=== PATIENT | female | born 1960 ===

== ENCOUNTER 2016-10-08 10:21 | Emergency (ER) | payer OTHER ==
[2016-10-08 10:31] VITALS: BP 101/47; PULSE 73; RESP 16; TEMP 98.2; O2SAT 97
--- NOTE | 2016-10-08 10:59 | C.PDOC ---
Time Seen by Provider: 10/08/16 10:34 Chief Complaint (Nursing): Headache Past Medical History Vital Signs: Last Vital Signs Temp 98.2 F 10/08/16 10:26 Pulse 73 10/08/16 10:26 Resp 16 10/08/16 10:26 BP 101/47 L 10/08/16 10:26 Pulse Ox 97 10/08/16 10:26 - Social History Hx Alcohol Use: No Hx Substance Use: No - Immunization History Hx Tetanus Toxoid Vaccination: Yes Hx Influenza Vaccination: No Hx Pneumococcal Vaccination: No ED Course And Treatment O2 Sat by Pulse Oximetry: 97 Disposition - Disposition Forms: [employer] (Italian)
--- NOTE | 2016-10-08 11:03 | C.PDOC ---
History Of Present Illness Alex Astudillo, a 56 year old female, presents to the ED complaining of a headache. The patient reports that one month ago a metal zak fell onto her head and she sustained a head injury. She states that she was evaluated and had a CT of her head performed but results were negative. The patient states that today she has been having intermittent headaches associated with mild dizziness. Denies nausea, vomiting, numbness and tingling in arms and legs, vision. Patient also denies new injury. Time Seen by Provider: 10/08/16 10:34 Chief Complaint (Nursing): Headache History Per: Patient History/Exam Limitations: no limitations Current Symptoms Are (Timing): Still Present Associated Symptoms: denies: Blurred Vision, Nausea, Vomiting, Extremity Weakness Past Medical History Reviewed: Historical Data Vital Signs: Last Vital Signs Temp 98.2 F 10/08/16 10:26 Pulse 73 10/08/16 10:26 Resp 16 10/08/16 11:58 BP 101/47 L 10/08/16 10:26 Pulse Ox 97 10/08/16 11:55 - Medical History PMH: No Chronic Diseases Surgical History: No Surg Hx Family History: States: Unknown Family Hx - Social History Hx Alcohol Use: No Hx Substance Use: No - Immunization History Hx Tetanus Toxoid Vaccination: Yes Hx Influenza Vaccination: No Hx Pneumococcal Vaccination: No Review Of Systems Eyes: Negative for: Vision Change Gastrointestinal: Negative for: Nausea, Vomiting Neurological: Positive for: Headache, Dizziness. Negative for: Weakness, Numbness Physical Exam - Physical Exam Appears: Non-toxic, No Acute Distress Skin: Warm, No Rash Head: No Atraumatic, No Normacephalic (Hematoma to top parietal scalp which is mildly tender and swollen.), Tenderness, Swelling Eye(s): bilateral: Normal Inspection, PERRL, EOMI Ear(s): Bilateral: Normal Oral Mucosa: Moist Neck: Normal ROM, No Midline Cervical Tenderness, No Paracervical Tenderness, Supple Chest: Symmetrical, No Deformity, No Tenderness, No Ecchymosis Cardiovascular: Rhythm Regular, No Friction Rub, No Murmur Respiratory: Normal Breath Sounds, No Rales, No Rhonchi, No Wheezing Neurological/Psych: Oriented x3, Normal Speech, Normal Cognition ED Course And Treatment O2 Sat by Pulse Oximetry: 97 (RA) Pulse Ox Interpretation: Normal Medical Decision Making Medical Decision Makin Initial Impression: 56 year old male presenting with headache and dizziness Initial Plan: * Toradol 30mg IM * Tylenol 650mg PO * Reevaluation On re-exam, the patient reports improvement of symptoms. Lungs are CTA, heart is RRR. Abdomen is soft, non-tender and patient is tolerating PO well. Ambulatory in the ED with steady gait. Follow up with the medical doctor within 1-2 days. Return if worsened. Disposition - Disposition Referrals: [facility] at [facility] [Outside] Disposition: HOME/ ROUTINE Disposition Time: 11:52 Condition: GOOD Additional Instructions: Follow up with the medical doctor within 1-2 days. Return if worsened. Prescriptions: Naproxen [Naprosyn] 500 mg PO BID #20 tab traMADol [Ultram] 50 mg PO Q6 PRN #20 tab PRN Reason: Pain Instructions: Concussion (ED), Head Injury (ED) Forms: [employer] (Sinhala) - Clinical Impression Clinical Impression: Head injury, Headache - Scribe Statement The provider has reviewed the documentation as recorded by the Katieibronny Jolly All medical record entries made by the Katieibronyn were at my direction and personally dictated by me. I have reviewed the chart and agree that the record accurately reflects my personal performance of the history, physical exam, medical decision making, and the department course for this patient. I have also personally directed, reviewed, and agree with the discharge instructions and disposition.
== END 2016-10-08 11:58 | disposition home or self-care (01) ==
LOC: C.ER 10:21
DX: S09.90XD Unspecified injury of head, subsequent encounter (principal); W22.8XXD Striking against or struck by other objects, subsequent encounter; R51 Headache
CPT/HCPCS: 96372; 99284; J1885

== ENCOUNTER 2017-01-24 11:24 | Emergency (ER) | payer OTHER ==
[2017-01-24 11:24] VITALS: BMI 29.8
[2017-01-24 11:45] VITALS: RESP 16
[2017-01-24] MEDS ORDERED: Naproxen 550 mg Tab PO STA (12:39)
--- NOTE | 2017-01-24 12:42 | C.PDOC ---
History Of Present Illness 56yo female, presents to ED with complaints of breast, more on her right breast , for the past 4 days. Patient denies any trauma, injury, skin changes, nipple discharge, nipple inversion, shortness of breath, trouble breathing or chest pain. Of note, patient states she had a mammogram done in [facility]2015, which was normal. Also reports she has a scheduled visit at the clinic on Jan 30, states she is here today because she wants something for the pain. She offers no other medical complaints. Time Seen by Provider: 01/24/17 12:25 Chief Complaint (Nursing): Breast Problem History Per: Patient History/Exam Limitations: no limitations Onset/Duration Of Symptoms: Days Current Symptoms Are (Timing): Still Present Past Medical History Vital Signs: Last Vital Signs Temp 98.8 F 01/24/17 12:54 Pulse 60 01/24/17 12:54 Resp 16 01/24/17 12:54 BP 149/80 01/24/17 12:54 Pulse Ox 71 L 01/24/17 14:24 - Medical History PMH: No Chronic Diseases Surgical History: No Surg Hx Family History: States: No Known Family Hx - Social History Hx Alcohol Use: No Hx Substance Use: No - Immunization History Hx Tetanus Toxoid Vaccination: Yes Hx Influenza Vaccination: Yes Hx Pneumococcal Vaccination: No Review Of Systems Cardiovascular: Negative for: Chest Pain Respiratory: Negative for: Shortness of Breath Musculoskeletal: Positive for: Other (breast pain, worse on right. denies any skin changes, nipple discharge, nipple inversion) Physical Exam - Physical Exam Appears: Other (mild painful distress) Skin: Normal Color, No Rash, Other (no skin changes noted to breasts) Lymphatic: No Axilla Node Tenderness Chest: Other (tenderness to palpation of right lateral breast; on visual exam both breasts symmetrical. no nipple discharge or inversion noted.) Cardiovascular: Rhythm Regular Respiratory: Normal Breath Sounds Neurological/Psych: Oriented x3 ED Course And Treatment O2 Sat by Pulse Oximetry: 71 Medical Decision Making Medical Decision Making: Impression: Breast pain Plan: -- Tylenol 975 mg PO Informed patient to follow up with clinic for prescription for a repeat mammogram as an outpatient. Patient stable for discharge home. Disposition Counseled Patient/Family Regarding: Need For Followup, Rx Given - Disposition Referrals: [facility] [Outside] Disposition: HOME/ ROUTINE Disposition Time: 12:40 Condition: STABLE Additional Instructions: Follow up with the clinic in 2 days without fail for further evaluation. Take medication as prescribed. Return to the ER at any time for any new or worsening symptoms. Prescriptions: Meloxicam [Mobic] 15 mg PO DAILY #20 tab Instructions: Breast Self Exam for Women (ED) Forms: [employer] (Armenian), Work Excuse Print Language: ESTONIAN - Clinical Impression Clinical Impression: Pain of breast - PA / LANGUAGE TRANSLATOR / Resident Statement MD/DO has reviewed & agrees with the documentation as recorded. - Scribe Statement The provider has reviewed the documentation as recorded by the Corine Felipe Provider Attestation: All medical record entries made by the Katieibe were at my direction and personally dictated by me. I have reviewed the chart and agree that the record accurately reflects my personal performance of the history, physical exam, medical decision making, and the department course for this patient. I have also personally directed, reviewed, and agree with the discharge instructions and disposition.
[2017-01-24] MEDS ORDERED: Naproxen 550 mg Tab PO ONE (12:48)
[2017-01-24 12:55] VITALS: BP 149/80; PULSE 60; TEMP 98.8
[2017-01-24 14:05] VITALS: O2SAT 71
== END 2017-01-24 13:02 | disposition home or self-care (01) ==
LOC: C.ER 11:24
DX: N64.4 Mastodynia (principal)

== ENCOUNTER 2017-05-12 14:29 | Emergency (ER) | payer OTHER ==
[2017-05-12 14:40] VITALS: BMI 29.5
[2017-05-12] MEDS ORDERED: Sodium Chloride 0.9% 1,000 ML IV ONE (15:16)
--- NOTE | 2017-05-12 15:16 | C.PDOC ---
History Of Present Illness 56 year old female with PSHx of a presents to the ED c/o left flank pain, LLQ pain associated with nausea and vomit for the past 5 days. Patient reports that for the past 2 days her pain has worsened. Patient denies nausea, vomit, diarrhea, weakness, numbness. L FLANK, LLQ PAIN SINCE +NV PSH CSECT EXAM MOD DIST NONTOXIC ABD +LLQ TEND SOFT +L CVAT REMAINDER NEG Time Seen by Provider: 05/12/17 14:50 Chief Complaint (Nursing): Abdominal Pain History Per: Patient History/Exam Limitations: no limitations Onset/Duration Of Symptoms: Days Current Symptoms Are (Timing): Still Present Severity: Mild Location Of Pain/Discomfort: LLQ Radiation Of Pain To:: Back Quality Of Discomfort: "Pain" Associated Symptoms: denies: Nausea, Vomiting, Diarrhea Exacerbating Factors: None Recent travel outside of the [place]: No Additional History Per: Patient Abnormal Vaginal Bleeding: No Past Medical History Reviewed: Historical Data, Nursing Documentation, Vital Signs Vital Signs: Last Vital Signs Temp 97.8 F 05/12/17 14:40 Pulse 90 05/12/17 14:40 Resp 18 05/12/17 14:40 BP 112/76 05/12/17 14:40 Pulse Ox 99 05/12/17 18:13 - Medical History PMH: No Chronic Diseases Surgical History: Family History: States: Unknown Family Hx - Social History Hx Alcohol Use: No Hx Substance Use: No - Immunization History Hx Tetanus Toxoid Vaccination: Yes Hx Influenza Vaccination: Yes (2017) Hx Pneumococcal Vaccination: No Review Of Systems Constitutional: Negative for: Fever, Chills Cardiovascular: Negative for: Chest Pain Respiratory: Negative for: Cough, Shortness of Breath Gastrointestinal: Positive for: Abdominal Pain. Negative for: Nausea, Vomiting , Diarrhea Musculoskeletal: Positive for: Back Pain Skin: Negative for: Rash Neurological: Negative for: Weakness, Numbness Physical Exam - Physical Exam Appears: Non-toxic, No Acute Distress Skin: Normal Color, Warm, Dry Head: Atraumatic, Normacephalic Eye(s): bilateral: Normal Inspection Nose: No Discharge Oral Mucosa: Moist Neck: Normal ROM, Supple Chest: Symmetrical Cardiovascular: Rhythm Regular, No Murmur Respiratory: Normal Breath Sounds, No Rales, No Rhonchi, No Wheezing Gastrointestinal/Abdominal: Soft, Tenderness (LLQ), No Guarding, No Rebound Back: Other (Left flakn tenderness) Extremity: Normal ROM, No Tenderness, No Swelling Neurological/Psych: Oriented x3 Gait: Steady ED Course And Treatment - Laboratory Results Result Diagrams: 05/12/17 15:46 05/12/17 15:46 O2 Sat by Pulse Oximetry: 99 (On RA) Pulse Ox Interpretation: Normal - CT Scan/US CT abd/pelvis Other Rad Studies (CT/US): Read By Radiologist, Radiology Report Reviewed CT/US Interpretation: PROCEDURE: CT Abdomen and Pelvis with contrast. HISTORY : LLQ PAIN RO RENAL COLIC VS DIVERTICULITIS. COMPARISON: None. TECHNIQUE: Contrast dose: 100 mL Visipaque 320. Radiation dose: Total exam DLP = 751.40 mGy-cm. This CT exam was performed using one or more of the following dose reduction techniques: Automated exposure control, adjustment of the mA and/or kV according to patient size, and/or use of iterative reconstruction technique. FINDINGS: LOWER THORAX: Unremarkable. LIVER: Normal size, contour and attenuation. Multiple rounded nonspecific low-attenuation masses, largest 14 mm. Possible cysts. No biliary dilatation. Smooth contour. GALLBLADDER AND BILE DUCTS: Unremarkable. PANCREAS: Unremarkable. No gross lesion or ductal dilatation. SPLEEN: Unremarkable. ADRENALS: Unremarkable. No mass. KIDNEYS AND URETERS: Nonobstructing 2 mm right lower pole renal calculus. No left renal calculus. No renal mass or hydronephrosis. VASCULATURE: Unremarkable. No aortic aneurysm. BOWEL: Acute diverticulitis of distal descending/ sigmoid colonic junction. No abscess. No bowel obstruction. Scattered colonic diverticulosis elsewhere. APPENDIX: Not identified. No secondary findings. PERITONEUM: Unremarkable. No free fluid. No free air. LYMPH NODES: Unremarkable. No enlarged lymph nodes. BLADDER: Unremarkable. REPRODUCTIVE: Status post hysterectomy. BONES: No acute fracture. OTHER FINDINGS: None. IMPRESSION: Acute diverticulitis at the junction of the distal descending and sigmoid colon. No evidence of abscess or free air. Scattered colonic diverticulosis. Additional minor findings as above. Medical Decision Making Medical Decision Making: Impression: left flank, LLQ pain Plan: * CT abd/pelvis * Labs * Flomax 0.4 mg PO * IV fluids * Lidocaine IV * Reglan 10 mg IV * Tylenol 975 mg PO * Zofran 4 mg IVP * UA Disposition Counseled Patient/Family Regarding: Studies Performed, Diagnosis, Need For Followup, Rx Given - Disposition Referrals: YOUR,PMD [Other] Disposition: HOME/ ROUTINE Disposition Time: 18:14 Condition: IMPROVED Prescriptions: Acetaminophen with Codeine [Tylenol with Codeine No. 3 300 mg-30 mg] 1 tab PO Q6 PRN #12 tab PRN Reason: Pain, Moderate (4-7) Ciprofloxacin [Cipro] 1 tab PO BID #14 tab Metoclopramide [Reglan] 1 tab PO TID PRN #25 tab PRN Reason: Nausea/Vomiting Metronidazole [Flagyl] 500 mg PO BID #14 tab Instructions: Diverticulitis Forms: [employer] (Slovak) Print Language: GUAMANIAN - Clinical Impression Clinical Impression: Diverticulitis - Scribe Statement The provider has reviewed the documentation as recorded by the Scribronny Serrano All medical record entries made by the Scribe were at my direction and personally dictated by me. I have reviewed the chart and agree that the record accurately reflects my personal performance of the history, physical exam, medical decision making, and the department course for this patient. I have also personally directed, reviewed, and agree with the discharge instructions and disposition.
[2017-05-12] MEDS ORDERED: LIDOCAINE IV STA (15:17)
[2017-05-12] MEDS ORDERED: SODIUM CHLORIDE 0.9% IV STA (15:17)
[2017-05-12] MEDS ORDERED: Sodium Chloride 0.9% 1,000 ML ONE (15:34)
[2017-05-12 15:43] LABS: SQUAMOUS EPITHIAL 2 /hpf (0-5); URINE BILIRUBIN NEGATIVE (NEGATIVE); URINE BLOOD NEGATIVE (NEGATIVE); URINE CLARITY Hazy (Clear); URINE COLOR Yellow (YELLOW); URINE GLUCOSE (UA) NORMAL (Normal); URINE LEUKOCYTE ESTERASE TRACE Leu/uL (Negative); URINE PROTEIN NEGATIVE (NEGATIVE)
[2017-05-12] MEDS ORDERED: Iohexol 240 (50 ml) ONE (15:49)
[2017-05-12 15:51] LABS: BASO # 0.1 K/uL (0.0-0.2); BASO % 0.7 % (0.0-2.0); EOS # 0.8 K/uL (0.0-0.7); EOS % 9.4 % (0.0-4.0); HEMOGLOBIN 11.6 g/dL (11.0-16.0); LYMPH # 2.5 K/uL (1.0-4.3); LYMPH % 30.5 % (20.0-40.0); MEAN CELL VOLUME 86.3 fL (81.0-99.0); MEAN CORPUSCULAR HEMOGLOBIN 28.4 pg (27.0-31.0); MEAN CORPUSCULAR HGB CONC 32.9 g/dL (33.0-37.0); MEAN PLATELET VOLUME 9.3 fL (7.2-11.7); MONO # 0.8 K/uL (0.0-0.8); MONO % 9.7 % (0.0-10.0); NEUT # 4.1 K/uL (1.8-7.0); NEUT % 49.7 % (50.0-75.0); RBC 4.1 Mil/uL (3.80-5.20); WHITE BLOOD COUNT 8.2 K/uL (4.8-10.8)
[2017-05-12 16:13] LABS: BLOOD UREA NITROGEN 15 mg/dL (7-17); CALCIUM 8.5 mg/dl (8.6-10.4); GFR AFRICAN-AMERICAN > 60; GFR NON-AFRICAN AMERICAN > 60
[2017-05-12] MEDS ORDERED: Iodixanol 320 MG/ML 100 ML BOTTLE IV ONE (17:00)
--- NOTE | 2017-05-12 18:05 | CT ---
PROCEDURE: CT Abdomen and Pelvis with contrast HISTORY: LLQ PAIN RO RENAL COLIC VS DIVERTICULITIS COMPARISON: None. TECHNIQUE: Contrast dose: 100 mL Visipaque 320 Radiation dose: Total exam DLP = 751.40 mGy-cm. This CT exam was performed using one or more of the following dose reduction techniques: Automated exposure control, adjustment of the mA and/or kV according to patient size, and/or use of iterative reconstruction technique. FINDINGS: LOWER THORAX: Unremarkable. LIVER: Normal size, contour and attenuation. Multiple rounded nonspecific low-attenuation masses, largest 14 mm. Possible cysts. No biliary dilatation. Smooth contour. GALLBLADDER AND BILE DUCTS: Unremarkable. PANCREAS: Unremarkable. No gross lesion or ductal dilatation. SPLEEN: Unremarkable. ADRENALS: Unremarkable. No mass. KIDNEYS AND URETERS: Nonobstructing 2 mm right lower pole renal calculus. No left renal calculus. No renal mass or hydronephrosis. VASCULATURE: Unremarkable. No aortic aneurysm. BOWEL: Acute diverticulitis of distal descending/ sigmoid colonic junction. No abscess. No bowel obstruction. Scattered colonic diverticulosis elsewhere. APPENDIX: Not identified. No secondary findings. PERITONEUM: Unremarkable. No free fluid. No free air. LYMPH NODES: Unremarkable. No enlarged lymph nodes. BLADDER: Unremarkable. REPRODUCTIVE: Status post hysterectomy BONES: No acute fracture. OTHER FINDINGS: None. IMPRESSION: Acute diverticulitis at the junction of the distal descending and sigmoid colon. No evidence of abscess or free air. Scattered colonic diverticulosis. Additional minor findings as above.
[2017-05-12] MEDS ORDERED: Ciprofloxacin 400mg/200ml D5W 400 MG/200 ML BAG IV STA (18:06)
[2017-05-12] MEDS ORDERED: metroNIDAZOLE IV 500 mg/100 ml 500 MG/100 ML BAG IV SCH (18:15)
[2017-05-12] MEDS ORDERED: metroNIDAZOLE IV 500 mg/100 ml 500 MG/100 ML BAG IVPB STA (18:21)
[2017-05-12] MEDS ORDERED: Ciprofloxacin 400mg/200ml D5W 400 MG/200 ML BAG IVPB ONE (18:26)
[2017-05-12] MEDS ORDERED: metroNIDAZOLE IV 500 mg/100 ml 500 MG/100 ML BAG ONE (20:38)
[2017-05-12 20:52] VITALS: BP 98/63; PULSE 71; RESP 20; TEMP 97.6; O2SAT 100
== END 2017-05-12 21:23 | disposition home or self-care (01) ==
LOC: C.ER 14:29
DX: K57.32 Diverticulitis of large intestine without perforation or abscess without bleeding (principal)
CPT/HCPCS: 74177; 80048; 81001; 85025; 96361; 96365; 96375; 99284; J0744; J2001; J2765; J7040; Q9967

== ENCOUNTER 2017-10-05 17:36 | Emergency (ER) | payer OTHER ==
[2017-10-05 17:37] VITALS: BMI 29.5
[2017-10-05 17:45] VITALS: BP 132/83; PULSE 74; RESP 19; TEMP 97.6; O2SAT 100
--- NOTE | 2017-10-05 18:17 | C.PDOC ---
History Of Present Illness 57 y/o female presents to the ED c/o left shoulder pain due to fall she experienced 3 weeks ago. According to the patient, she fell at work. She admits to going to the ER s/p fall and receiving an X-Ray that read negative. The patient is a poor historian who cannot recall her occupation or the fall that lead to the injury. Time Seen by Provider: 10/05/17 17:53 Chief Complaint (Nursing): Upper Extremity Problem/Injury History Per: Patient (poor historian) History/Exam Limitations: no limitations Onset/Duration Of Symptoms: Days Current Symptoms Are (Timing): Still Present Quality: "Pain" Recent travel outside of the [place]: No Past Medical History Reviewed: Historical Data, Nursing Documentation, Vital Signs Vital Signs: Last Vital Signs Temp 97.6 F 10/05/17 17:49 Pulse 74 10/05/17 17:49 Resp 19 10/05/17 17:49 BP 132/83 10/05/17 17:49 Pulse Ox 100 10/05/17 19:04 Surgical History: Family History: States: Unknown Family Hx - Social History Hx Alcohol Use: No Hx Substance Use: No - Immunization History Hx Tetanus Toxoid Vaccination: Yes Hx Influenza Vaccination: Yes (2017) Hx Pneumococcal Vaccination: No Review Of Systems Constitutional: Negative for: Fever Cardiovascular: Negative for: Chest Pain Musculoskeletal: Positive for: Shoulder Pain (left shoulder pain). Negative for : Neck Pain Skin: Negative for: Rash, Lesions, Bruising Neurological: Negative for: Weakness, Numbness, Other (tingling) Physical Exam - Physical Exam Appears: No Acute Distress Skin: No Rash Head: Atraumatic, Normacephalic Eye(s): bilateral: PERRL, EOMI Oral Mucosa: Moist Neck: Supple Chest: Symmetrical Extremity: No Normal ROM (dec rom shoulder 2/2 pain), Tenderness (anterior shoulder) Extremity: Left: Limited ROM To Joint (limited ROM to left shoulder) Pulses: Left Radial: Normal, Right Radial: Normal Neurological/Psych: Oriented x3, Normal Speech, Normal Cognition ED Course And Treatment O2 Sat by Pulse Oximetry: 100 (RA) Pulse Ox Interpretation: Normal Medical Decision Making Medical Decision Making: Patient is requesting CT scan of shoulder from ED. pt has not followed up with pmd or orthopedist since injury 3 weeks ago. Explained to patient, no need for cdt in ER, needs to f/u outpatient. In ED, patient is refusing X-Ray of shoulder and refuses Tylenol. 19:03 - Pt notified the nurse that she wanted to go for X-Ray. X-Ray was reviewed and found negative. Patient was informed Disposition Counseled Patient/Family Regarding: Diagnosis, Need For Followup - Disposition Referrals: [facility] at [facility] [Outside] Disposition: HOME/ ROUTINE Disposition Time: 18:36 Condition: GOOD Additional Instructions: Take Tylenol or Motrin for pain. Cold compresses to left shoulder several times per day. Apply for Gabrielle care and follow up in medical clinic and recommend referral to orthopedics. [place] Tylenol o Motrin para el dolor. Compresas fras al hombro leonid varias veces por da. Solicite cuidado de dhiraj y seguimiento en chito clnica mdica y recomiende chito derivacin a ortopedia. Forms: Gen Discharge Inst Ukrainian, Banyan (Ukrainian) Print Language: MALDIVIAN - Clinical Impression Clinical Impression: Left shoulder pain - PA / AUDIO VISUAL COLLECTIONS COORDINATOR / Resident Statement MD/DO has reviewed & agrees with the documentation as recorded. - Scribe Statement The provider has reviewed the documentation as recorded by the Scribe (Aby Hernandez) All medical record entries made by the Scribe were at my direction and personally dictated by me. I have reviewed the chart and agree that the record accurately reflects my personal performance of the history, physical exam, medical decision making, and the department course for this patient. I have also personally directed, reviewed, and agree with the discharge instructions and disposition.
--- NOTE | 2017-10-06 09:06 | RAD ---
Date of service: 10/05/2017 PROCEDURE: Radiographs of the Left Shoulder HISTORY: s/p fall, dec rom COMPARISON: No prior. FINDINGS: BONES: Bone alignment and mineralization are normal. There is no acute displaced fracture or bone destruction. JOINTS: Normal. Glenohumeral and acromioclavicular joints preserved. No osteoarthritis. SOFT TISSUES: Normal. OTHER FINDINGS: None. IMPRESSION: No acute fracture or dislocation.
== END 2017-10-05 19:03 | disposition home or self-care (01) ==
LOC: C.ER 17:36
DX: M25.512 Pain in left shoulder (principal)

== ENCOUNTER 2017-12-01 10:41 | Observation (INO) | payer OTHER ==
[2017-12-01 10:41] VITALS: BMI 29.5
[2017-12-01 12:47] LABS: BASO # 0.1 K/uL (0.0-0.2); BASO % 1.1 % (0.0-2.0); EOS # 0.8 K/uL (0.0-0.7); EOS % 14.8 % (0.0-4.0); HEMOGLOBIN 13.1 g/dL (11.0-16.0); LYMPH # 2.2 K/uL (1.0-4.3); LYMPH % 40.8 % (20.0-40.0); MEAN CELL VOLUME 86.7 fL (81.0-99.0); MEAN CORPUSCULAR HEMOGLOBIN 28.5 pg (27.0-31.0); MEAN CORPUSCULAR HGB CONC 32.9 g/dL (33.0-37.0); MEAN PLATELET VOLUME 9.6 fL (7.2-11.7); MONO # 0.7 K/uL (0.0-0.8); MONO % 12.1 % (0.0-10.0); NEUT # 1.7 K/uL (1.8-7.0); NEUT % 31.2 % (50.0-75.0); NRBC % 0.1 % (0.0-2.0); RBC 4.6 Mil/uL (3.80-5.20); RED CELL DISTRIBUTION WIDTH 13.4 % (11.5-14.5); WHITE BLOOD COUNT 5.5 K/uL (4.8-10.8)
[2017-12-01 13:00] LABS: ALB/GLOB RATIO 1.1 (1.0-2.1); ALBUMIN 4.6 g/dL (3.5-5.0); ALT/SGPT 18 U/L (9-52); AST/SGOT 33 U/L (14-36); BLOOD UREA NITROGEN 14 mg/dL (7-17); CALCIUM 9.8 mg/dl (8.6-10.4); GFR NON-AFRICAN AMERICAN > 60
[2017-12-01 13:10] LABS: B-TYPE NATRIURETIC PEPTIDE 42.2 pg/mL (0-900)
--- NOTE | 2017-12-01 13:27 | C.PDOC ---
History Of Present Illness 57 year old female presents to the ED for evaluation of left-sided chest pain and occasional shortness of breath for the past week. Patient also reports that the pain radiates to her left arm. Patient states her symptoms worsen at night. She was evaluated by Dr. Mcintyre two weeks ago and was told her blood pressure was high. She did not have chest pain at the time, and was discharged with prescription for hydrochlorothiazide. Patient states symptoms are sometimes worse with walking. Patient has never underwent stress test. She denies nausea, vomiting. Time Seen by Provider: 12/01/17 12:07 Chief Complaint (Nursing): Chest Pain History Per: Patient History/Exam Limitations: no limitations Onset/Duration Of Symptoms: Days Current Symptoms Are (Timing): Still Present Quality: "Pain" Associated Symptoms: denies: Nausea Exacerbating Factors: Other (walking ) Additional History Per: Patient Past Medical History Reviewed: Historical Data, Nursing Documentation, Vital Signs Vital Signs: Last Vital Signs Temp 97.7 F 12/01/17 10:47 Pulse 69 12/01/17 10:47 Resp 17 12/01/17 10:47 BP 122/80 12/01/17 10:47 Pulse Ox 100 12/01/17 10:47 - Medical History PMH: No Chronic Diseases Surgical History: Family History: States: Unknown Family Hx - Social History Hx Alcohol Use: No Hx Substance Use: No - Immunization History Hx Tetanus Toxoid Vaccination: Yes Hx Influenza Vaccination: Yes (2018) Hx Pneumococcal Vaccination: Yes Review Of Systems Cardiovascular: Positive for: Chest Pain (left-sided ) Respiratory: Positive for: Shortness of Breath Gastrointestinal: Negative for: Nausea, Vomiting Physical Exam - Physical Exam Appears: Non-toxic, No Acute Distress Skin: Normal Color, Warm, Dry Head: Atraumatic, Normacephalic Eye(s): bilateral: Normal Inspection Oral Mucosa: Moist Neck: Supple Chest: Symmetrical, No Deformity, No Tenderness Cardiovascular: Rhythm Regular, No Murmur Respiratory: Normal Breath Sounds, No Rales, No Rhonchi, No Wheezing Extremity: Normal ROM, Capillary Refill (less than 2 seconds ) Neurological/Psych: Oriented x3, Normal Speech, Normal Cognition ED Course And Treatment - Laboratory Results Result Diagrams: 12/01/17 12:30 12/01/17 12:30 ECG: Interpreted By Me, Viewed By Me ECG Rhythm: Sinus Rhythm Interpretation Of ECG: Normal sinus Rhythm at rate 80bpm. Normal intervals, normal axis. T wave flattening in lead aVL. Rate From EC O2 Sat by Pulse Oximetry: 100 (on RA) Pulse Ox Interpretation: Normal Medical Decision Making Medical Decision Making: Assessment: chest pain Plan: * bloodwork * CXR * EKG * Plavix PO * reassess and disposition Progress: Bloodwork, CXR, EKG ordered and reviewed. Plavix PO given. Disposition Discussed With Dr.: Chikis Coleman Doctor Will See Patient In The: Hospital Counseled Patient/Family Regarding: Studies Performed, Diagnosis - Disposition Disposition: HOSPITALIZED Disposition Time: 13:27 Condition: FAIR Forms: [employer] Connect (Maltese) - Clinical Impression Clinical Impression: Chest pain - Scribe Statement The provider has reviewed the documentation as recorded by the Scribe (Flores Watson) Provider Attestation: All medical record entries made by the Scribe were at my direction and personally dictated by me. I have reviewed the chart and agree that the record accurately reflects my personal performance of the history, physical exam, [facility] decision making, and the department course for this patient. I have also personally directed, reviewed, and agree with the discharge instructions and disposition.
--- NOTE | 2017-12-01 13:39 | RAD ---
Date of service: 12/01/2017 PROCEDURE: CHEST RADIOGRAPH, 1 VIEW HISTORY: chest pain COMPARISON: None available. FINDINGS: LUNGS: Clear. PLEURA: No pneumothorax or pleural fluid seen. CARDIOVASCULAR: Normal. OSSEOUS STRUCTURES: Mild multilevel degenerative spondylosis of the thoracic spine. VISUALIZED UPPER ABDOMEN: Normal. OTHER FINDINGS: None. IMPRESSION: No active disease.
--- NOTE | 2017-12-01 16:03 | CP.PCM.HP ---
<Aby Meier P - Last Filed: 12/01/17 19:54> History of Present Illness - History of Present Illness History of Present Illness: H&P note for hospitalist. Patient is a 57 year old female with past medical history of HTN who presented to ED with complaints of intermittent chest pain and palpitations for the past month. Episodes were initially mild and lasted a few seconds in duration, but this past week become more severe and would last for approximately one hour. Pain is 8-9/10, described as throbbing, and worsens at night. The pain radiates to her left arm and is occasionally associated with dizziness and shortness of breath. States she has been under increased stress at home brought on by her son's drug use. Patient denies any recent illness, fever, chills, N/V, diaphoresis, or headache. Patient has never had a stress test or an echo. PMH: HTN (diagnosed 2 weeks ago), diverticulitis 04/2017 PSHx: , tubal ligation Meds: HCTZ 12.5mg daily, Asa 81mg daily Allergies: NKDA Family Hx: sister with a "weak heart", another sister with hx of cardiac surgery Social: former smoker-quit 25 years ago, 5 cigarettes per day. denies drugs and alcohol use. Present on Admission - Present on Admission Any Indicators Present on Admission: No Review of Systems - Constitutional Constitutional: Chills. absent: Fever, Headache, Lethargy, Night Sweats - EENT Eyes: absent: Decreased Night Vision, Diplopia, Loss of Peripheral Vision Nose/Mouth/Throat: absent: Bleeding Gums, Change in Voice - Cardiovascular Cardiovascular: Chest Pain, Palpitations. absent: Diaphoresis, Dyspnea on Exertion, Edema, Leg Edema, Lightheadedness, Orthopnea, Paroxysmal Nocturnal Dyspnea, Pedal Edema - Respiratory Respiratory: Dyspnea. absent: Cough, Hemoptysis, Dyspnea on Exertion, Wheezing, Snoring, Stridor, Pain on Inspiration - Gastrointestinal Gastrointestinal: absent: Belching, Change in Bowel Habits, Constipation, Dyspepsia, Dysphagia, Excessive Flatus, Heartburn, Loose Stools, Temesmus - Musculoskeletal Musculoskeletal: absent: Abnormal Gait, Back Pain, Muscle Weakness, Myalgias, Neck Pain - Neurological Neurological: Dizziness. absent: Abnormal Gait, Abnormal Hearing, Burning Sensations, Disequilibrium, Loss of Vision, Paresthesias, Radicular Pain, Restless Legs - Psychiatric Psychiatric: Anxiety Past Patient History - Past Social History Smoking Status: Former Smoker - NEUROLOGICAL Hx Neurological Disorder: Yes - PSYCHIATRIC Hx Substance Use: No - SURGICAL HISTORY Hx Surgeries: Yes Hx Section: Yes Hx Hysterectomy: Yes - ANESTHESIA Hx Anesthesia: Yes Hx Anesthesia Reactions: No Meds Allergies/Adverse Reactions: Allergies Allergy/AdvReac Type Severity Reaction Status Date / Time No Known Allergies Allergy Verified 12/01/17 19:37 Physical Exam - Constitutional Appears: Non-toxic, No Acute Distress - Head Exam Head Exam: ATRAUMATIC, NORMOCEPHALIC - Eye Exam Eye Exam: EOMI, PERRL - ENT Exam ENT Exam: Mucous Membranes Moist - Neck Exam Neck exam: Positive for: Full Rom, Normal Inspection - Respiratory Exam Respiratory Exam: Clear to Auscultation Bilateral. absent: Decreased Breath Sounds, Rales, Rhonchi, Wheezes, Respiratory Distress - Cardiovascular Exam Cardiovascular Exam: REGULAR RHYTHM, +S1, +S2 - GI/Abdominal Exam GI & Abdominal Exam: Normal Bowel Sounds, Soft, Tenderness (Mild LLQ tenderness) - Extremities Exam Extremities exam: Positive for: full ROM, normal inspection, pedal pulses present. Negative for: calf tenderness, joint swelling, pedal edema, tenderness - Neurological Exam Neurological exam: Alert, CN II-XII Intact, Oriented x3 - Psychiatric Exam Psychiatric exam: Normal Affect, Normal Mood - Skin Skin Exam: Dry, Intact, Normal Color, Warm Results - Vital Signs Recent Vital Signs: Last Vital Signs Temp 97.2 F L 12/01/17 14:45 Pulse 72 12/01/17 14:52 Resp 18 12/01/17 14:45 BP 126/81 12/01/17 14:45 Pulse Ox 98 12/01/17 14:45 - Labs Result Diagrams: 12/01/17 12:30 12/01/17 12:30 Labs: Laboratory Results - last 24 hr 12/01/17 12/01/17 12:30 12:30 WBC 5.5 RBC 4.60 Hgb 13.1 Hct 39.9 MCV 86.7 MCH 28.5 MCHC 32.9 L RDW 13.4 Plt Count 270 MPV 9.6 Neut % (Auto) 31.2 L Lymph % (Auto) 40.8 H [place] % (Auto) 12.1 H Eos % (Auto) 14.8 H Baso % (Auto) 1.1 Neut # (Auto) 1.7 L Lymph # (Auto) 2.2 [place] # (Auto) 0.7 Eos # (Auto) 0.8 H Baso # (Auto) 0.1 Sodium 141 Potassium 3.9 Chloride 99 Carbon Dioxide 31 H Anion Gap 15 BUN 14 Creatinine 0.7 Est GFR ( Amer) > 60 Est GFR (Non-Af Amer) > 60 Random Glucose 86 Calcium 9.8 Total Bilirubin 0.6 AST 33 ALT 18 Alkaline Phosphatase 80 Troponin I < 0.0120 NT-Pro-B Natriuret Pep 42.2 Total Protein 8.7 H Albumin 4.6 Globulin 4.1 H Albumin/Globulin Ratio 1.1 Assessment & Plan - Assessment and Plan (Free Text) Plan: 57 year old female with PMHx of HTN presents to ED complaining of chest pain and palpitations. Chest pain rule out ACS -EKG on admission: NSR, consider age indeterminate anterior infarct -Troponin negative x2, f/u 3rd -Echo: f/u -TSH, free T4 -Lipid panel -Hgb A1c -ASA 81mg daily -Crestor 10mg PO HS -Cardio consult, Dr. Li covering for Dr. Acosta. Help appreciated. Hx of hypertension Continue home med HCTZ 12.5mg daily Anxiety Psych consulted. Help appreciated PPx SCDs Patient ambulatory, chemical anticoagulation not indicated Pepcid 20mg BID <Chikis Coleman V - Last Filed: 12/01/17 21:45> Results - Vital Signs Recent Vital Signs: Last Vital Signs Temp 97.4 F L 12/01/17 16:00 Pulse 78 12/01/17 16:00 Resp 20 12/01/17 16:00 BP 124/80 12/01/17 16:00 Pulse Ox 99 12/01/17 19:20 - Labs Result Diagrams: 12/01/17 12:30 12/01/17 12:30 Labs: Laboratory Results - last 24 hr 12/01/17 12/01/17 12/01/17 12:30 12:30 16:56 WBC 5.5 RBC 4.60 Hgb 13.1 Hct 39.9 MCV 86.7 MCH 28.5 MCHC 32.9 L RDW 13.4 Plt Count 270 MPV 9.6 Neut % (Auto) 31.2 L Lymph % (Auto) 40.8 H [place] % (Auto) 12.1 H Eos % (Auto) 14.8 H Baso % (Auto) 1.1 Neut # (Auto) 1.7 L Lymph # (Auto) 2.2 [place] # (Auto) 0.7 Eos # (Auto) 0.8 H Baso # (Auto) 0.1 Sodium 141 Potassium 3.9 Chloride 99 Carbon Dioxide 31 H Anion Gap 15 BUN 14 Creatinine 0.7 Est GFR ( Amer) > 60 Est GFR (Non-Af Amer) > 60 Random Glucose 86 Calcium 9.8 Total Bilirubin 0.6 AST 33 ALT 18 Alkaline Phosphatase 80 Total Creatine Kinase 64 CK-MB (Mass) 0.45 Troponin I < 0.0120 < 0.0120 NT-Pro-B Natriuret Pep 42.2 Total Protein 8.7 H Albumin 4.6 Globulin 4.1 H Albumin/Globulin Ratio 1.1 Attending/Attestation - Attestation I have personally seen and examined this patient.: Yes I have fully participated in the care of the patient.: Yes I have reviewed all pertinent clinical information: Yes Notes (Text): this is a 57 year old woman with no prior cardiac workup; cardiac risk factors for hypertension, former smoker for 10 years stopped smoking 5 years ago, both sisters with heart conditions, one requiring surgery and the other noted for suspected heart failure, who reports worsening chest pain. Patient reports she has been having chest pain for the past month, last for seconds, and then resolving; and then for the past week at night, she has been having chest pain at night, lasting for hour. Patient reports chest pain this morning at rest, but resolved on its own. Patient has not had a prior workup. Patient has EKG noted for abnormal in Lead III with no prior EKG to compared to. Initial troponin is negative. Patient was recently diagnosed at the [facility] on diuretic and reports she takes aspirin but sometimes bothers her stomach but no history of ulcers. I did have thoroughly discussion with the patient given her prior tobacco use; which luckily she reports she has stopped but still has had 10 years of smoking exposure, her family hx and hypertension are cardiac risk factors for heart attack. We will assess her cardiac risk factors such as lipid and diabetes, ordered echo, and seek cardiology consult. Patient also reports she has been dealing with stress; her son is using cocaine which worries her but he is in [facility] and she usually initiates the call but gets her worried quite a bit. 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 Assessment/Plan 1) Chest pain Cardiac risk factors: hypertension, family hx of heart disease (sisters) * EKG on admission: abnormality in Lead III no prior EKG to compared to * Troponin negative x2, f/u 3rd * Echo: f/ * TSH, free T4 * Lipid panel * Hgb A1c * ASA 81mg PO daily * Crestor 10mg PO HS * Cardio consult, Dr. Li covering for Dr. Acosta. Help appreciated. * BRIAN: 2-->8% risk at 14 days of all-cause mortality, new or recurrent [place], or severe recurrent ischemia requiring urgent revascularlization 2) Hx of hypertension * Continue home med HCTZ 12.5mg daily 3) Anxiety * Psych consulted. Help appreciated 4) PPx * SCDs * Patient ambulatory, chemical anticoagulation not indicated * Pepcid 20mg BID
[2017-12-01 16:28] VITALS: RESP 20
[2017-12-01 17:26] LABS: CK-MB 0.45 ng/mL (0.0-3.38)
--- NOTE | 2017-12-01 21:36 | CP.PCM.CON ---
History of Present Illness - History of Present Illness History of Present Illness: Patient seen and evaluated Non cardiac non exertional chest pain episode Trop x 2 negative Normal EKG No further cardiac work up necessary at this time Out patient medical follow up Thank you Past Patient History - Past Social History Smoking Status: Former Smoker - NEUROLOGICAL Hx Neurological Disorder: Yes - PSYCHIATRIC Hx Substance Use: No - SURGICAL HISTORY Hx Surgeries: Yes Hx Section: Yes Hx Hysterectomy: Yes - ANESTHESIA Hx Anesthesia: Yes Hx Anesthesia Reactions: No Meds Allergies/Adverse Reactions: Allergies Allergy/AdvReac Type Severity Reaction Status Date / Time No Known Allergies Allergy Verified 12/01/17 19:37 - Medications Medications: Current Medications Aspirin (Aspirin Chewable) 81 mg PO DAILY ISAAC Famotidine (Pepcid) 20 mg PO BID ISAAC Hydrochlorothiazide (Microzide) 12.5 mg PO DAILY ISAAC Pneumococcal Polyvalent Vaccine (Pneumovax 23 Vaccine) 0.5 ml IM .ONCE ONE Stop: 12/02/17 10:01 Rosuvastatin Calcium (Crestor) 10 mg PO HS ISAAC Results - Vital Signs Recent Vital Signs: Last Vital Signs Temp 97.4 F L 12/01/17 16:00 Pulse 78 12/01/17 16:00 Resp 20 12/01/17 16:00 BP 124/80 12/01/17 16:00 Pulse Ox 99 12/01/17 19:20 - Labs Result Diagrams: 12/01/17 12:30 12/01/17 12:30 Labs: Laboratory Results - last 24 hr 12/01/17 12/01/17 12/01/17 12:30 12:30 16:56 WBC 5.5 RBC 4.60 Hgb 13.1 Hct 39.9 MCV 86.7 MCH 28.5 MCHC 32.9 L RDW 13.4 Plt Count 270 MPV 9.6 Neut % (Auto) 31.2 L Lymph % (Auto) 40.8 H [place] % (Auto) 12.1 H Eos % (Auto) 14.8 H Baso % (Auto) 1.1 Neut # (Auto) 1.7 L Lymph # (Auto) 2.2 [place] # (Auto) 0.7 Eos # (Auto) 0.8 H Baso # (Auto) 0.1 Sodium 141 Potassium 3.9 Chloride 99 Carbon Dioxide 31 H Anion Gap 15 BUN 14 Creatinine 0.7 Est GFR ( Amer) > 60 Est GFR (Non-Af Amer) > 60 Random Glucose 86 Calcium 9.8 Total Bilirubin 0.6 AST 33 ALT 18 Alkaline Phosphatase 80 Total Creatine Kinase 64 CK-MB (Mass) 0.45 Troponin I < 0.0120 < 0.0120 NT-Pro-B Natriuret Pep 42.2 Total Protein 8.7 H Albumin 4.6 Globulin 4.1 H Albumin/Globulin Ratio 1.1
[2017-12-01 23:16] LABS: CK-MB 0.38 ng/mL (0.0-3.38)
[2017-12-02 07:49] VITALS: BP 107/75; TEMP 97.8; O2SAT 97
[2017-12-02 07:50] VITALS: PULSE 62
[2017-12-02 08:33] LABS: BASO # 0.1 K/uL (0.0-0.2); BASO % 1.2 % (0.0-2.0); EOS # 0.6 K/uL (0.0-0.7); EOS % 12.9 % (0.0-4.0); HEMOGLOBIN 13.2 g/dL (11.0-16.0); LYMPH # 1.9 K/uL (1.0-4.3); LYMPH % 40.9 % (20.0-40.0); MEAN CELL VOLUME 86.2 fL (81.0-99.0); MEAN CORPUSCULAR HEMOGLOBIN 28.5 pg (27.0-31.0); MEAN CORPUSCULAR HGB CONC 33.1 g/dL (33.0-37.0); MEAN PLATELET VOLUME 9.3 fL (7.2-11.7); MONO # 0.7 K/uL (0.0-0.8); MONO % 15.4 % (0.0-10.0); NEUT # 1.4 K/uL (1.8-7.0); NEUT % 29.6 % (50.0-75.0); RBC 4.63 Mil/uL (3.80-5.20); RED CELL DISTRIBUTION WIDTH 13.2 % (11.5-14.5); WHITE BLOOD COUNT 4.6 K/uL (4.8-10.8)
[2017-12-02 08:50] LABS: ALB/GLOB RATIO 1.1 (1.0-2.1); ALBUMIN 4.2 g/dL (3.5-5.0); ALT/SGPT 21 U/L (9-52); AST/SGOT 28 U/L (14-36); BLOOD UREA NITROGEN 17 mg/dL (7-17); CALCIUM 9.7 mg/dl (8.6-10.4); GFR NON-AFRICAN AMERICAN > 60; HDL CHOLESTEROL 57 mg/dL (30-70)
[2017-12-02 08:56] LABS: LDL CHOLESTEROL 122 mg/dL (0-129)
[2017-12-02] MEDS ORDERED: Enoxaparin 40 mg Syringe SC SCH (10:00)
[2017-12-02] MEDS ORDERED: Pantoprazole 40 mg EC Tab PO SCH (10:00)
[2017-12-02] MEDS ORDERED: Pneumococcal 23-Valent Vaccine IM ONE (10:00)
--- NOTE | 2017-12-02 11:03 | CP.PCM.DIS ---
<Radha Geronimo - Last Filed: 12/02/17 11:29> Provider - Provider Date of Admission: 12/01/17 13:26 Attending physician: Chikis Coleman DO Consults: Dr. Li, cardiology Time Spent in preparation of Discharge (in minutes): 29 Diagnosis - Discharge Diagnosis (1) Chest pain Status: Acute Comment: ACS ruled out per workup Hospital Course - Lab Results Lab Results: Most Recent Lab Values WBC 4.6 K/uL (4.8-10.8) L 12/02/17 08:27 RBC 4.63 Mil/uL (3.80-5.20) 12/02/17 08:27 Hgb 13.2 g/dL (11.0-16.0) 12/02/17 08:27 Hct 39.9 % (34.0-47.0) 12/02/17 08:27 MCV 86.2 fL (81.0-99.0) 12/02/17 08:27 MCH 28.5 pg (27.0-31.0) 12/02/17 08:27 MCHC 33.1 g/dL (33.0-37.0) 12/02/17 08:27 RDW 13.2 % (11.5-14.5) 12/02/17 08:27 Plt Count 244 K/uL (130-400) 12/02/17 08:27 MPV 9.3 fL (7.2-11.7) 12/02/17 08:27 Neut % (Auto) 29.6 % (50.0-75.0) L 12/02/17 08:27 Lymph % (Auto) 40.9 % (20.0-40.0) H 12/02/17 08:27 [place] % (Auto) 15.4 % (0.0-10.0) H 12/02/17 08:27 Eos % (Auto) 12.9 % (0.0-4.0) H 12/02/17 08:27 Baso % (Auto) 1.2 % (0.0-2.0) 12/02/17 08:27 Neut # (Auto) 1.4 K/uL (1.8-7.0) L 12/02/17 08:27 Lymph # (Auto) 1.9 K/uL (1.0-4.3) 12/02/17 08:27 [place] # (Auto) 0.7 K/uL (0.0-0.8) 12/02/17 08:27 Eos # (Auto) 0.6 K/uL (0.0-0.7) 12/02/17 08:27 Baso # (Auto) 0.1 K/uL (0.0-0.2) 12/02/17 08:27 Sodium 140 mmol/L (132-148) 12/02/17 08:27 Potassium 4.0 mmol/L (3.6-5.2) 12/02/17 08:27 Chloride 101 mmol/L (98-107) 12/02/17 08:27 Carbon Dioxide 28 mmol/L (22-30) 12/02/17 08:27 Anion Gap 14 (10-20) 12/02/17 08:27 BUN 17 mg/dL (7-17) 12/02/17 08:27 Creatinine 0.7 mg/dL (0.7-1.2) 12/02/17 08:27 Est GFR ( Amer) > 60 12/02/17 08:27 Est GFR (Non-Af Amer) > 60 12/02/17 08:27 Random Glucose 97 mg/dL (65-105) 12/02/17 08:27 Calcium 9.7 mg/dl (8.6-10.4) 12/02/17 08:27 Total Bilirubin 0.6 mg/dL (0.2-1.3) 12/02/17 08:27 AST 28 U/L (14-36) 12/02/17 08:27 ALT 21 U/L (9-52) 12/02/17 08:27 Alkaline Phosphatase 85 U/L (38-126) 12/02/17 08:27 Total Creatine Kinase 49 U/L (30-135) 12/01/17 22:42 CK-MB (Mass) 0.38 ng/mL (0.0-3.38) 12/01/17 22:42 Troponin I < 0.0120 ng/mL (0.00-0.120) 12/01/17 22:42 NT-Pro-B Natriuret Pep 42.2 pg/mL (0-900) 12/01/17 12:30 Total Protein 8.1 g/dL (6.3-8.3) 12/02/17 08:27 Albumin 4.2 g/dL (3.5-5.0) 12/02/17 08:27 Globulin 3.9 gm/dL (2.2-3.9) 12/02/17 08:27 Albumin/Globulin Ratio 1.1 (1.0-2.1) 12/02/17 08:27 Triglycerides 71 mg/dL (0-149) D 12/02/17 08:27 Cholesterol 222 mg/dL (0-199) H 12/02/17 08:27 LDL Cholesterol Direct 122 mg/dL (0-129) 12/02/17 08:27 HDL Cholesterol 57 mg/dL (30-70) 12/02/17 08:27 Free T4 1.18 ng/dL (0.78-2.19) 12/02/17 08:27 TSH 3rd Generation 1.65 mIU/L (0.46-4.68) 12/02/17 08:27 - Hospital Course Hospital Course: Patient was evaluated and treated at [facility] from 12/01/17-12/02/17. Patient presented with left sided chest pain for 1 day. Chest x-ray revealed no acute pathology. Blood work, including cardiac enzymes were trended and all negative for cardiac event. EKGs performed, most recent shows NSR. Lipid panel revealed cholesterol of 222, and patient was subsequently started on a statin. Patient continued to take home HCTZ 12.5mg, with BP stable and WNL. Patient continued home ASA 81mg daily. Patient evaluated by cardiology, Dr. Li who advised patient is stable for discharge, and to follow up with cardio outpatient, to get echo results HPI on admission: "Patient is a 57 year old female with past medical history of HTN who presented to ED with complaints of intermittent chest pain and palpitations for the past month. Episodes were initially mild and lasted a few seconds in duration, but this past week become more severe and would last for approximately one hour. Pain is 8-9/10, described as throbbing, and worsens at night. The pain radiates to her left arm and is occasionally associated with dizziness and shortness of breath. States she has been under increased stress at home brought on by her son's drug use. Patient denies any recent illness, fever, chills, N/V, diaphoresis, or headache. Patient has never had a stress test or an echo. " Discharge Exam - Head Exam Head Exam: ATRAUMATIC, NORMAL INSPECTION, NORMOCEPHALIC - Eye Exam Eye Exam: EOMI, Normal appearance - ENT Exam ENT Exam: Mucous Membranes Moist, Normal Exam - Neck Exam Neck exam: Normal Inspection - Respiratory Exam Respiratory Exam: Clear to PA & Lateral, NORMAL BREATHING PATTERN, UNREMARKABLE - Cardiovascular Exam Cardiovascular Exam: REGULAR RHYTHM, +S1, +S2 - GI/Abdominal Exam GI & Abdominal Exam: Normal Bowel Sounds, Unremarkable - Extremities Exam Extremities exam: normal inspection - Neurological Exam Neurological exam: Alert, Oriented x3 - Psychiatric Exam Psychiatric exam: Normal Affect, Normal Mood - Skin Skin Exam: Dry, Intact, Normal Color, Warm Discharge Plan - Discharge Medications Prescriptions: Aspirin [Aspirin Chewable] 81 mg PO DAILY #90 chew Hydrochlorothiazide [Microzide] 12.5 mg PO DAILY #30 capsule Rosuvastatin Calcium [Crestor] 2.5 mg PO HS #30 tab - Follow Up Plan Condition: FAIR Disposition: HOME/ ROUTINE Instructions: Chest Pain (DC), Aspirin, Hydrochlorothiazide, Rosuvastatin Additional Instructions: Patient is stable for discharge home. Patient is being discharged with prescriptions to be filled and taken at home. Patient will take Aspiring 81mg, 1 per day. Patient will take hydrochlorothiazide 12.5mg, 1 per day. Patient will begin Crestor 2.5mg, 1 per day at bedtime. Patient is advised to follow up in clinic within 1 week of discharge to obtain a referral for cardiology to follow up with outpatient. Patient is advised to return to the Emergency Department with any worsening of symptoms. El paciente se encuentra estable para el crystal domiciliaria. El paciente est siendo dado de crystal con recetas que deben llenarse y tomarse en casa. Paciente david aspiracin 81 mg, 1 por da. El paciente david hidroclorotiazida 12,5 mg, 1 por da. El paciente comenzar a david Crestor 2,5 mg, 1 por da a la hora de acostarse. Se recomienda al paciente que realice un seguimiento en la clnica dentro de la primera semana despus del crystal hospitalaria para obtener chito referencia para cardiologa para el seguimiento con pacientes ambulatorios. Se recomienda al paciente que regrese al Departamento de Emergencias ante cualquier empeoramiento de los sntomas. Referrals: Clinic,Med Surg [Non-Staff] - <Chikis Coleman V - Last Filed: 12/02/17 19:12> Provider - Provider Date of Admission: 12/01/17 13:26 Attending physician: Chikis Coleman, DO [facility] Course - Lab Results Lab Results: Most Recent Lab Values WBC 4.6 K/uL (4.8-10.8) L 12/02/17 08:27 RBC 4.63 Mil/uL (3.80-5.20) 12/02/17 08:27 Hgb 13.2 g/dL (11.0-16.0) 12/02/17 08: Hct 39.9 % (34.0-47.0) 12/02/17 08: MCV 86.2 fL (81.0-99.0) 12/02/17 08:27 MCH 28.5 pg (27.0-31.0) 12/02/17 08:27 MCHC 33.1 g/dL (33.0-37.0) 12/02/17 08:27 RDW 13.2 % (11.5-14.5) 12/02/17 08:27 Plt Count 244 K/uL (130-400) 12/02/17 08:27 MPV 9.3 fL (7.2-11.7) 12/02/17 08:27 Neut % (Auto) 29.6 % (50.0-75.0) L 12/02/17 08: Lymph % (Auto) 40.9 % (20.0-40.0) H 12/02/17 08:27 [place] % (Auto) 15.4 % (0.0-10.0) H 12/02/17 08:27 Eos % (Auto) 12.9 % (0.0-4.0) H 12/02/17 08:27 Baso % (Auto) 1.2 % (0.0-2.0) 12/02/17 08:27 Neut # (Auto) 1.4 K/uL (1.8-7.0) L 12/02/17 08:27 Lymph # (Auto) 1.9 K/uL (1.0-4.3) 12/02/17 08:27 [place] # (Auto) 0.7 K/uL (0.0-0.8) 12/02/17 08:27 Eos # (Auto) 0.6 K/uL (0.0-0.7) 12/02/17 08:27 Baso # (Auto) 0.1 K/uL (0.0-0.2) 12/02/17 08:27 Sodium 140 mmol/L (132-148) 12/02/17 08:27 Potassium 4.0 mmol/L (3.6-5.2) 12/02/17 08:27 Chloride 101 mmol/L (98-107) 12/02/17 08:27 Carbon Dioxide 28 mmol/L (22-30) 12/02/17 08:27 Anion Gap 14 (10-20) 12/02/17 08:27 BUN 17 mg/dL (7-17) 12/02/17 08:27 Creatinine 0.7 mg/dL (0.7-1.2) 12/02/17 08:27 Est GFR ( Amer) > 60 12/02/17 08:27 Est GFR (Non-Af Amer) > 60 12/02/17 08:27 Random Glucose 97 mg/dL (65-105) 12/02/17 08:27 Calcium 9.7 mg/dl (8.6-10.4) 12/02/17 08:27 Total Bilirubin 0.6 mg/dL (0.2-1.3) 12/02/17 08:27 AST 28 U/L (14-36) 12/02/17 08:27 ALT 21 U/L (9-52) 12/02/17 08:27 Alkaline Phosphatase 85 U/L (38-126) 12/02/17 08:27 Total Creatine Kinase 49 U/L (30-135) 12/01/17 22:42 CK-MB (Mass) 0.38 ng/mL (0.0-3.38) 12/01/17 22:42 Troponin I < 0.0120 ng/mL (0.00-0.120) 12/01/17 22:42 NT-Pro-B Natriuret Pep 42.2 pg/mL (0-900) 12/01/17 12:30 Total Protein 8.1 g/dL (6.3-8.3) 12/02/17 08:27 Albumin 4.2 g/dL (3.5-5.0) 12/02/17 08:27 Globulin 3.9 gm/dL (2.2-3.9) 12/02/17 08:27 Albumin/Globulin Ratio 1.1 (1.0-2.1) 12/02/17 08:27 Triglycerides 71 mg/dL (0-149) D 12/02/17 08:27 Cholesterol 222 mg/dL (0-199) H 12/02/17 08:27 LDL Cholesterol Direct 122 mg/dL (0-129) 12/02/17 08:27 HDL Cholesterol 57 mg/dL (30-70) 12/02/17 08:27 Free T4 1.18 ng/dL (0.78-2.19) 12/02/17 08:27 TSH 3rd Generation 1.65 mIU/L (0.46-4.68) 12/02/17 08:27 Attending/Attestation - Attestation I have personally seen and examined this patient.: Yes I have fully participated in the care of the patient.: Yes I have reviewed all pertinent clinical information, including history, physical exam and plan: Yes Notes (Text): Patient seen, examined and case discussed with day-time resident. patient seen this morning. Patient denies chest pain, denies palpitations, reports she has slept well. patient is eager to home. Following EKGs no change. KIKE X3 negative. Patient sugar do not support diabetes. Patient recommended for diet and exercise modifications to reduce cholestrol and improve overall health. On discharge: 1) Aspirin 81mg once a day 2) HCTZ 12.5mg once a day 3) Crestor 2.5mg once at diet. Patient is medically stable for discharge. Patient re-emphasized if her chest pain recurs to come back to the hospital for immediate evaluation. Patient recommended to follow-up in the [facility] ([phone]) and recommended to outpatient cardiology referral for outpatient workup. This is a summary of patient's hospitalization. Please see EMR for further details of record. Discharge Diagnoses: 1) Chest pain-->resolved Cardiac risk factors: hypertension, family hx of heart disease (sisters) * EKG on admission: abnormality in Lead III no prior EKG to compared to * Troponin negative x3 * TSH: normal * Lipid panel: elevated cholestrol; LDL: 122 * ASA 81mg PO daily * Crestor 2.5 mg PO HS * Cardio consult, Dr. Li covering for Dr. Acosta. Help appreciated. * BRIAN: 2-->8% risk at 14 days of all-cause mortality, new or recurrent [place], or severe recurrent ischemia requiring urgent revascularlization 2) Hx of hypertension-->Chronic * Continue home med HCTZ 12.5mg daily 3) Anxiety-->chronic * Psych consulted. Help appreciated 4) PPx * SCDs * Patient ambulatory, chemical anticoagulation not indicated * Pepcid 20mg BID
--- NOTE | 2017-12-02 16:57 | CARD ---
APPROVED REPORT Date of service: 12/02/2017 EXAM: Two-dimensional and M-mode echocardiogram with Doppler and color Doppler. Other Information Quality : GoodRhythm : INDICATION Chest Pain 2D DIMENSIONS IVSd1.0 (0.7-1.1cm)Aortic Root (2D)2.6 (2.0-3.7cm) LVDd3.3 (3.9-5.9cm)LVOT Diameter1.9 (1.8-2.4cm) PWd1.2 (0.7-1.1cm)LVDs2.5 (2.5-4.0cm) FS (%) 23.0 %LVEF (%)47.2 (>50%) LVEF (Craft's)44.52 % M-Mode DIMENSIONS Left Atrium (MM)3.83 (2.5-4.0cm)Aortic Root3.07 (2.2-3.7cm) Aortic Cusp Exc.1.55 (1.5-2.0cm) Mitral Valve MV E Khubmozk96.6cm/sMV A Xixdssgz32.1cm/sE/A ratio0.6 TDI Lateral E' Peak V8.29cm/sMedial E' Peak V5.64cm/sE/Lateral E'6.7 E/Medial E'9.9 Pulmonary Valve PV Peak Ddtknteq24.3cm/sPV Peak Grad.2mmHg Tricuspid Valve TR Peak Hgxfsnyp018cf/sTR Peak Gr.98yxJfVCBU20dtPj LEFT VENTRICLE The left ventricle is normal size. There is normal left ventricular wall thickness. The left ventricular function is normal. The left ventricular ejection fraction is within the normal range. About60% No regional wall motion abnormalities noted. Transmitral Doppler flow pattern is Grade I-abnormal relaxation pattern. No left ventricle thrombus noted on this study. There is no ventricular septal defect visualized. There is no left ventricular aneurysm. There is no mass noted in the left ventricle. RIGHT VENTRICLE The right ventricle is normal size. There is normal right ventricular wall thickness. The right ventricular systolic function is normal. ATRIA The left atrium size is normal. The right atrium size is normal. The interatrial septum is intact with no evidence for an atrial septal defect. AORTIC VALVE The aortic valve is normal in structure and function. No aortic regurgitation is present. There is no aortic valvular stenosis. There is no aortic valvular vegetation. MITRAL VALVE The mitral valve is normal in structure and function. There is no evidence of mitral valve prolapse. There is no mitral valve stenosis. There is trace mitral valve regurgitation noted. TRICUSPID VALVE The tricuspid valve is normal in structure and function. There is mild tricuspid valve regurgitation noted. There is no tricuspid valve prolapse or vegetation. There is no tricuspid valve stenosis. PULMONIC VALVE The pulmonary valve is normal in structure and function. There is no pulmonic valvular regurgitation. There is no pulmonic valvular stenosis. GREAT VESSELS The aortic root is normal in size. The ascending aorta is normal in size. The pulmonary artery is normal. The IVC is normal in size and collapses >50% with inspiration. PERICARDIAL EFFUSION The pericardium appears normal. There is no pleural effusion. <Conclusion> The left ventricular function is normal. Normal wall motion. Type I diastolic dysfunction. Septal thickness is borderline increased, 1.2 cm. Normal Doppler.
--- NOTE | 2017-12-04 20:41 | CARD ---
APPROVED REPORT Date of service: 12/01/2017 EKG Measurement Heart [id number] GA [id number] <Conclusion> Normal sinus rhythm Normal ECG
--- NOTE | 2017-12-04 20:45 | CARD ---
APPROVED REPORT Date of service: 12/01/2017 EKG Measurement Heart [id number] SD [id number] <Conclusion> Normal sinus rhythm Normal ECG
--- NOTE | 2017-12-04 20:48 | CARD ---
APPROVED REPORT Date of service: 12/01/2017 EKG Measurement Heart [id number] <Conclusion> Normal sinus rhythm Septal infarct, age undetermined Abnormal ECG
== END 2017-12-02 14:20 | disposition home or self-care (01) ==
LOC: C.ER 10:41 → C.9E 13:26 → C.5S 13:46
PROVIDERS: ADMIT Hospitalist; ATTEND Hospitalist
DX: R07.9 Chest pain, unspecified (principal); I10 Essential (primary) hypertension; Z87.891 Personal history of nicotine dependence; F41.9 Anxiety disorder, unspecified; Z79.82 Long term (current) use of aspirin; Z82.49 Family history of ischemic heart disease and other diseases of the circulatory system; Z90.710 Acquired absence of both cervix and uterus
CPT/HCPCS: 36415; 71045; 80053; 80061; 83036; 83880; 84439; 84443; 84484; 85025; 93306; 99284; G0378

== ENCOUNTER 2017-12-20 10:13 | Emergency (ER) | payer OTHER ==
[2017-12-20 10:22] VITALS: BMI 26.6
[2017-12-20 10:59] LABS: SQUAMOUS EPITHIAL 2 /hpf (0-5); URINE BILIRUBIN NEGATIVE (NEGATIVE); URINE BLOOD NEGATIVE (NEGATIVE); URINE CLARITY Clear (Clear); URINE COLOR Yellow (YELLOW); URINE GLUCOSE (UA) NORMAL (Normal); URINE LEUKOCYTE ESTERASE NEG Leu/uL (Negative); URINE PROTEIN NEGATIVE (NEGATIVE); URINE UROBILINOGEN NORMAL mg/dL (0.2-1.0)
[2017-12-20 11:46] LABS: BASO # 0.1 K/uL (0.0-0.2); BASO % 0.9 % (0.0-2.0); EOS # 0.6 K/uL (0.0-0.7); EOS % 9.6 % (0.0-4.0); HEMOGLOBIN 11.6 g/dL (11.0-16.0); LYMPH # 2.5 K/uL (1.0-4.3); LYMPH % 38.1 % (20.0-40.0); MEAN CELL VOLUME 85.8 fL (81.0-99.0); MEAN CORPUSCULAR HEMOGLOBIN 28.2 pg (27.0-31.0); MEAN CORPUSCULAR HGB CONC 32.8 g/dL (33.0-37.0); MEAN PLATELET VOLUME 8.3 fL (7.2-11.7); MONO # 0.6 K/uL (0.0-0.8); NEUT # 2.8 K/uL (1.8-7.0); NEUT % 42.4 % (50.0-75.0); RBC 4.12 Mil/uL (3.80-5.20); RED CELL DISTRIBUTION WIDTH 13.5 % (11.5-14.5); WHITE BLOOD COUNT 6.5 K/uL (4.8-10.8)
--- NOTE | 2017-12-20 11:54 | C.PDOC ---
History Of Present Illness 57 y/o female presents to ED with c/o left abdominal pain with occasional radiating to left lower back for 3 days associated with nausea since yesterday. Patient was seen at ED previously for same symptoms and had CT scan that showed ?Colitis as per patient. Patient reports she was given medication that gave her an allergic anxious reaction and stopped taking. Patient denies fever, chills, vomiting, diarrhea, dysuria, hematuria or any other complaints at this time. Time Seen by Provider: 12/20/17 10:29 Chief Complaint (Nursing): Abdominal Pain History Per: Patient History/Exam Limitations: no limitations Onset/Duration Of Symptoms: Days Current Symptoms Are (Timing): Still Present Location Of Pain/Discomfort: LUQ, LLQ Past Medical History Reviewed: Historical Data, Nursing Documentation, Vital Signs Vital Signs: Last Vital Signs Temp 98.4 F 12/20/17 10:21 Pulse 80 12/20/17 10:21 Resp 16 12/20/17 10:21 BP 111/81 12/20/17 10:21 Pulse Ox 96 12/20/17 10:21 - Medical History PMH: No Chronic Diseases Surgical History: Family History: States: No Known Family Hx - Social History Hx Alcohol Use: No Hx Substance Use: No - Immunization History Hx Tetanus Toxoid Vaccination: Yes Hx Influenza Vaccination: Yes (2018) Hx Pneumococcal Vaccination: Yes Review Of Systems Constitutional: Negative for: Fever, Chills Gastrointestinal: Positive for: Nausea, Abdominal Pain. Negative for: Vomiting, Diarrhea Genitourinary: Negative for: Dysuria, Hematuria Musculoskeletal: Positive for: Back Pain Skin: Negative for: Rash Physical Exam - Physical Exam Appears: Non-toxic, No Acute Distress Skin: Warm, Dry, No Rash Head: Atraumatic, Normacephalic Eye(s): bilateral: Normal Inspection Oral Mucosa: Moist Neck: Normal ROM, Supple Cardiovascular: Rhythm Regular Respiratory: Normal Breath Sounds, No Rales, No Rhonchi, No Wheezing Gastrointestinal/Abdominal: Soft, Tenderness (Left sided), No Distention, No Guarding, No Rebound Back: CVA Tenderness (left sided), No Paraspinal Tenderness Extremity: Normal ROM, No Swelling Neurological/Psych: Oriented x3, Normal Speech, Normal Cognition Gait: Steady ED Course And Treatment - Laboratory Results Result Diagrams: 12/20/17 11:31 12/20/17 11:31 O2 Sat by Pulse Oximetry: 96 (RA) Pulse Ox Interpretation: Normal Medical Decision Making Medical Decision Making: Labs and Vitals are WNLs. On re-exam, the patient reports improvement of symptoms. Lungs are CTA, heart is RRR, abdomen is soft, non-tender and the patient is tolerating PO well. Follow up with the medical doctor within 1-2 days. Return if worsened. Disposition - Disposition Referrals: [facility] [Outside] Disposition: HOME/ ROUTINE Disposition Time: 13:52 Condition: STABLE Additional Instructions: Follow up with the medical doctor within 1-2 days. Return if worsened. Prescriptions: metroNIDAZOLE [Flagyl] 500 mg PO BID #14 tab Naproxen [Naprosyn] 500 mg PO BID #20 tab Polyethylene Glycol 3350 [Miralax] 17 gm PO DAILY PRN #100 ml PRN Reason: Constipation Sulfamethoxazole/Trimethoprim [Bactrim DS 800 mg-160 mg] 1 tab PO BID #14 tab Instructions: Diverticulosis, Diverticulitis (DC) Forms: [employer] (Mongolian) Print Language: MALTESE - Clinical Impression Clinical Impression: Diverticulitis - PA / STAIN DIPPER / Resident Statement MD/DO has reviewed & agrees with the documentation as recorded. - Scribe Statement The provider has reviewed the documentation as recorded by the Corine Diallo All medical record entries made by the Corine were at my direction and personally dictated by me. I have reviewed the chart and agree that the record accurately reflects my personal performance of the history, physical exam, medical decision making, and the department course for this patient. I have also personally directed, reviewed, and agree with the discharge instructions and disposition.
--- NOTE | 2017-12-20 11:54 | RAD ---
Date of service: 12/20/2017 PROCEDURE: CHEST RADIOGRAPH, 1 VIEW HISTORY: Abdominal pain COMPARISON: 12/01/2017. FINDINGS: LUNGS: The lungs are well inflated and clear. PLEURA: No pneumothorax or pleural effusion. CARDIOVASCULAR: The heart is normal in size. No aortic atherosclerotic calcifications present. OSSEOUS STRUCTURES: Within normal limits for the patient's age. VISUALIZED UPPER ABDOMEN: Normal. OTHER FINDINGS: None. IMPRESSION: No active pulmonary disease.
[2017-12-20 12:03] LABS: ALB/GLOB RATIO 1.1 (1.0-2.1); ALT/SGPT 20 U/L (9-52); AST/SGOT 20 U/L (14-36); BLOOD UREA NITROGEN 9 mg/dL (7-17); CALCIUM 9.4 mg/dl (8.6-10.4); GFR NON-AFRICAN AMERICAN > 60; LIPASE 91 U/L (23-300)
[2017-12-20] MEDS ORDERED: Iodixanol 320 MG/ML 100 ML BOTTLE IV ONE (12:54)
--- NOTE | 2017-12-20 13:25 | CT ---
Date of service: 12/20/2017 PROCEDURE: CT Abdomen and Pelvis with contrast HISTORY: LLQ abd pain, hx of diverticulitis COMPARISON: 05/12/2017. TECHNIQUE: CT scan of the abdomen and pelvis was performed after administration of intravenous contrast. Oral contrast was not administered. Coronal and sagittal reformatted images were obtained. Contrast dose: 100 mL Visipaque Radiation dose: Total exam DLP = 702.66 mGy-cm. This CT exam was performed using one or more of the following dose reduction techniques: Automated exposure control, adjustment of the mA and/or kV according to patient size, and/or use of iterative reconstruction technique. FINDINGS: LOWER THORAX: The visualized lungs are clear. LIVER: Normal in size with homogeneous enhancement. There are stable simple cysts, the largest in the right hepatic lobe measures 1.4 cm. No mass or ductal dilatation. GALLBLADDER AND BILE DUCTS: Well distended. No calcified gallstones, wall thickening or pericholecystic fluid. PANCREAS: Normal in size with homogeneous enhancement. No gross lesion or ductal dilatation. SPLEEN: Normal in size and appearance. ADRENALS: No discrete nodule. KIDNEYS AND URETERS: Normal in size with homogeneous enhancement. Fatty liver. No hydronephrosis. No solid mass. VASCULATURE: No aortic aneurysm. BOWEL: Evaluation of the bowel is limited in the absence of oral contrast. The small bowel loops are normal in caliber. There is extensive colonic diverticulosis. There is segmental circumferential mural thickening in the proximal descending colon with surrounding inflammatory changes and minimal fluid. No perforation or drainable collection. No abscess. APPENDIX: Normal appendix. PERITONEUM: No free fluid. No free air. LYMPH NODES: No enlarged lymph nodes. BLADDER: Well distended and normal in appearance. REPRODUCTIVE: The uterus is normal in size. BONES: No acute fracture. Multilevel degenerative disc disease. OTHER FINDINGS: None. IMPRESSION: 1. Findings are most compatible with segmental acute diverticulitis involving the proximal descending colon. No micro perforation or abscess. 2. Extensive colonic diverticulosis.
[2017-12-20 13:48] VITALS: PULSE 78; RESP 18; TEMP 98
[2017-12-20 14:04] VITALS: BP 126/79
[2017-12-20 17:17] VITALS: O2SAT 96
== END 2017-12-20 14:04 | disposition home or self-care (01) ==
LOC: C.ER 10:13
DX: K57.32 Diverticulitis of large intestine without perforation or abscess without bleeding (principal)
CPT/HCPCS: 71045; 74177; 80053; 81001; 83690; 85025; 96374; 96375; 99284; J1885; J2405; Q9967